=== PATIENT | male | born 1955 | race Caucasian/White ===

== ENCOUNTER → 2024-02-17 | Outpatient (REF) | payer BC, SELFPAY | LOC: DHSLP | PROVIDERS: ATTENDING PHYSICIAN Internal Medicine Critical Care Medicine; FAMILY PHYSICIAN Internal Medicine | DX: G47.33 Obstructive sleep apnea (adult) (pediatric) (principal) | CPT/HCPCS: 95811 ==

== ENCOUNTER → 2024-04-26 13:37 | Outpatient (REF) | payer BC, SELFPAY | LOC: HWRAD 13:37 | PROVIDERS: ATTENDING PHYSICIAN Internal Medicine Critical Care Medicine; FAMILY PHYSICIAN Internal Medicine | DX: J47.9 Bronchiectasis, uncomplicated (principal); J41.8 Mixed simple and mucopurulent chronic bronchitis; J45.20 Mild intermittent asthma, uncomplicated | CPT/HCPCS: 71046 ==

== ENCOUNTER → 2025-03-12 14:54 | Outpatient (REF) | payer MEDICARE, BC, SELFPAY | LOC: HWRAD 14:54 | PROVIDERS: ATTENDING PHYSICIAN Nurse Practitioner Family | DX: J44.1 Chronic obstructive pulmonary disease with (acute) exacerbation (principal) | CPT/HCPCS: 71046 ==